=== PATIENT | female | born 2000 | race Caucasian/White ===

== ENCOUNTER 2021-12-11 15:29 | Inpatient (IN) ==
[2021-12-11] MEDS ORDERED: OXYTOCIN 30 UNITS/500 ML BAG IV PRN (15:49)
[2021-12-11 16:31] LABS: Hematocrit (blood only) 35.1 % (34.1-44.9); Hemoglobin 11.6 g/dl (12.0-16.0); Mean Corpuscular Hemoglobin 27.8 pg (25.0-34.0); Mean Platelet Volume 10.2 fL (9.4-12.3); Platelet Count 314 K/uL (130-400); RDW Coefficient of Variation 13.6 % (11.5-14.5); RDW Standard Deviation 42.1 fL (36.4-46.3); Red Blood Count 4.18 M/uL (3.93-5.22); White Blood Count 11.29 K/ul (4.8-10.8)
[2021-12-11 17:23] LABS: Alanine Aminotransferase 11 U/L (7-52); Albumin Globulin Ratio 1.1 (0.9-2); Albumin Level 3.4 gm/dl (3.4-5.0); Alkaline Phosphatase 222 U/L (34-104); Anion Gap 9 (3-11); Aspartate Aminotransferase 17 U/L (13-39); Bilirubin,Total 0.3 mg/dl (0.2-1.0); Blood Urea Nitrogen 7 mg/dl (6-23); Calcium 8.9 mg/dl (8.5-10.1); Carbon Dioxide 21 mmol/L (21-32); Chloride 104 mmol/L (98-107); Creatinine Clr Calc Pharmacy 213.9 ml/min; Est GFR (African American) > 150.0 ml/min; Est GFR (Non-African American) 134.9 ml/min; Globulin 3.2 gm/dl (2.5-4.0); Glucose 78 mg/dl (70-99(Fasting)); Potassium 3.9 mmol/L (3.5-5.1); Sodium 134 mmol/L (136-145); Total Protein 6.6 gm/dl (6.0-8.3)
[2021-12-11 17:33] LABS: Creatinine Urine Random 36.3 mg/dl; Protein Creatinine Ratio Urine 0.2 (0-0.2); Total Protein Urine Random 5.5 mg/dl (0-11.9)
--- NOTE | 2021-12-11 18:11 | Labor Progress Brief Note ---
Date of Service December 11, 2021 Subjective Patient continues to feel well. No VITALE, vision change / floaters, RUQ pain or worsening of edema. Good FM, no LOF or VB, no ctx. Assessment & Plan (1) Gestational hypertension: Plan: Blood pressures all normal since arrival on L&D. Labs reassuring. Discussed with patient and FOB. She had two severe pressures in office, then all normal BP on L&D after arriving, with no current symptoms and all normal labs. There is some difficulty making the diagnosis of gestational hypertension with only two abnormal pressures taken five minutes apart with a manual cuff and never oth erwise reproduced. But the two values she had were rather impressive, and I have no reason to doubt the nurse who measured them. Pamela is 39+ weeks, at which point any hypertensive diagnosis would be a clear indication for delivery, and even an elective IOL would be fine. Her cervix is currently unripe. Pamela was interested in waiting at least until Tuesday to start an induction if possible. We discussed the possibility of having her come to the office for a BP check that day, with PIH precautions over the weekend, and she was agreeable to IOL if her BP was elevated again on Tuesday which would clearly have made a diagnosis of gestational hypertension. During our discussion, however, the next automatic BP cuff measurement was taken and was 141/79. At that point she did meet the diagnosis of gestational hypertension and was encouraged to stay for IOL tonight, which she accepted. Pamela was not expecting any of this when she went to the office for her routine visit today. She hasn't eaten since breakfast, didn't bring her personal belongings, hasn't showered... Since her induction is likely to be a long process, beginning with a coats balloon attempt this evening, we discussed her having a chance to eat and clean herself up before we get started. Her is going to get some food for them, she'll get a shower, we can continue to monitor her fetus and BP, and she will have the nurse notify me when she's ready for me to place the Coats. Admission and Anticipated Discharge Date Admission Date: December 11, 2021 Physical Exam Genitourinary: cl/th/hi FHT Cat 1 [place] quiet. Results & Data ([facility]) Vital Signs (Past 12 Hours) Vital Signs Temp Pulse Resp BP 12/11/21 17:58 88 141/79 H 12/11/21 17:44 78 129/65 12/11/21 17:29 84 128/60 12/11/21 16:54 91 H 132/74 12/11/21 16:38 85 127/65 12/11/21 16:23 88 131/67 12/11/21 16:20 87 136/64 12/11/21 16:00 98.6 F 88 18 137/74 12/11/21 15:58 88 137/74 12/11/21 15:53 93 H 132/76 Coding Level of Care Code None Diagnoses Gestational hypertension O13.9
--- NOTE | 2021-12-11 20:19 | Procedure Note ---
Procedure Note Date of Service December 11, 2021 Note monitoring was used to ensure reassuring status. The patient was verbally consented for placement of a coats for cervical ripening, with discussion of risks, benefits and alternatives. All her questions were answered. Her legs were placed in lithotomy position. A lubricated, gloved hand was used to examine the cervix. The cervix was fingertip dilated, thick, and posterior. A stylet was lubricated and inserted into a coats catheter to give it stiffness, and the coats catheter was then advanced along my fingers until it reached the external cervical os. The coats was then fed forward off of the stylet, which was itself never moved beyond the external os, such that the soft catheter advanced into the uterine cavity outside of the amnion until the balloon was definitely above the internal cervical os. The balloon was then inflated using sterile water to 35cc volume. Gentle traction was used to seat the balloon downward against the internal cervical os. My hand and the stylet were removed from the vagina, and the coats was secured to the patient's leg with a standard coats holding sticker. There was mild bleeding appropriate for placement of cervical balloon, and no leakage of fluid. The heart tones remained reassuring after this process, which the patient tolerated well. Coding CPT Codes Misx Procedure Codes - 66753 Placement of cervical dilator: 08607 Placement of cervical dilator ([id number]) [facility] Procedure Codes (Charges) Misx Procedure Codes 53567 Placement of cervical dilator
[2021-12-11] MEDS: LACTATED RINGER'S 1,000 ML IV PRN (20:26)
[2021-12-11] MEDS ORDERED: ACETAMINOPHEN 325 MG TAB PO ONE (23:14)
[2021-12-11] MEDS ORDERED: ACETAMINOPHEN 325 MG TAB ONE (23:20)
[2021-12-12] MEDS ORDERED: OXYTOCIN 30 UNITS/500 ML BAG IV PRN ×2 (06:44→23:46)
--- NOTE | 2021-12-12 06:44 | Labor Progress Brief Note ---
Date of Service December 12, 2021 Subjective Sleeping comfortably at this time. Assessment & Plan (1) Gestational hypertension: Plan: Gestational hypertension at 39w2d, for medically indicated induction of labor. Has continued to have occasional HTN values, but none severe, most BP normal. No antihypertensives given during this admission. Will add pitocin to coats, and RN will notify MD when patient awake for next exa m / coats check. Admission and Anticipated Discharge Date Admission Date: December 11, 2021 Physical Exam Genitourinary: Coats remains in place. RN has tugged on coats to ensure it's still firmly in place each time patient has been up to void through the night, and reports it is still in / not able to easily be removed at most recent check. FHT Cat 1 Carmi contractions irregular but at times Q3-4min Results & Data ([facility]) Vital Signs (Past 12 Hours) Vital Signs Temp Pulse Resp BP 12/12/21 05:57 67 117/77 12/12/21 04:56 76 106/59 L 12/12/21 04:08 98.4 F 20 12/12/21 03:56 86 130/73 12/12/21 02:56 75 126/59 L 12/12/21 01:58 74 115/57 L 12/12/21 01:13 18 12/12/21 00:58 81 16 95/53 L 12/12/21 00:06 18 12/11/21 23:57 71 100/54 L 12/11/21 23:02 98.2 F 18 12/11/21 22:57 94 H 145/87 H 12/11/21 22:00 96 H 138/76 12/11/21 21:32 105 H 140/75 12/11/21 21:01 98.6 F 16 12/11/21 20:17 111 H 144/77 H 12/11/21 19:18 84 137/64 12/11/21 19:17 98.2 F 18 Laboratory Results Laboratory Results - last 24 hr 12/11/21 12/11/21 12/11/21 16:07 16:07 16:07 WBC 11.29 H RBC 4.18 Hgb 11.6 L Hct 35.1 MCV 84.0 MCH 27.8 MCHC 33.0 RDW Std Deviation 42.1 RDW Coeff of Mahsa 13.6 Plt Count 314 MPV 10.2 Sodium 134 L Potassium 3.9 Chloride 104 Carbon Dioxide 21 Anion Gap 9 BUN 7 Creatinine 0.54 L Est Cr Clr Drug Dosing 213.9 Est GFR ( Amer) > 150.0 Est GFR (Non-Af Amer) 134.9 BUN/Creatinine Ratio 13.0 Glucose 78 Calcium 8.9 Total Bilirubin 0.3 AST 17 ALT 11 Alkaline Phosphatase 222 H Total Protein 6.6 Albumin 3.4 Globulin 3.2 Albumin/Globulin Ratio 1.1 Ur Random Creatinine U Random Total Protein Protein/Creatinin Ratio SARS-CoV-2, RNA, NAAT Blood Type A Positive Antibody Screen NEGATIVE 12/11/21 12/11/21 16:10 16:20 WBC RBC Hgb Hct MCV MCH MCHC RDW Std Deviation RDW Coeff of Mahsa Plt Count MPV Sodium Potassium Chloride Carbon Dioxide Anion Gap BUN Creatinine Est Cr Clr Drug Dosing Est GFR ( Amer) Est GFR (Non-Af Amer) BUN/Creatinine Ratio Glucose Calcium Total Bilirubin AST ALT Alkaline Phosphatase Total Protein Albumin Globulin Albumin/Globulin Ratio Ur Random Creatinine 36.3 U Random Total Protein 5.5 Protein/Creatinin Ratio 0.2 SARS-CoV-2, RNA, NAAT NEGATIVE Blood Type Antibody Screen Coding Level of Care Code None Diagnoses Gestational hypertension O13.9
[2021-12-12] MEDS: LACTATED RINGER'S 1,000 ML IV PRN ×5 (07:32→23:08)
--- NOTE | 2021-12-12 07:50 | Labor Progress Brief Note ---
Date of Service December 12, 2021 Subjective Patient tolerating cramping. Does c/o VITALE, mild and L frontal, that she believes is due to not sleeping well. Notes occasional floaters in vision this morning that are similar to what she's had off and on in recent weeks, "not bad" compared to what she usually has and not always present, only when she looks in certain directions. Assessment & Plan (1) Gestational hypertension: Plan: BP primarily in [id number] range, with some in mild HTN range. No severe pressures since she was in the office yesterday. No hyperreflexia and labs normal. Her VITALE last night responded fully to tylenol, and I'm uncertain she merits magnesium. Will give another dose of tylenol and if any VITALE or floaters persist would likely diagnose with severe features. Admission and Anticipated Discharge Date Admission Date: December 11, 2021 Physical Exam Neurologic: Reflexes normal / 2+ Genitourinary: FHT Cat 1 [place] ?Q4 subtle pattern, difficult to trace 2/2 habitus [place] balloon sitting at labia, removed. Cervical exam poorly tolerated and I'm only able to reach the anterior lip of the cervix, but it is no longer closed. Presumably at least 3cm, thick, and still very posterior. Lymphatic: Edema bilateral LE unchanged from admission Results & Data ([facility]) Vital Signs (Past 12 Hours) Vital Signs Temp Pulse Resp BP 12/12/21 07:02 74 153/74 H 12/12/21 05:57 67 117/77 12/12/21 04:56 76 106/59 L 12/12/21 04:08 98.4 F 20 12/12/21 03:56 86 130/73 12/12/21 02:56 75 126/59 L 12/12/21 01:58 74 115/57 L 12/12/21 01:13 18 12/12/21 00:58 81 16 95/53 L 12/12/21 00:06 18 12/11/21 23:57 71 100/54 L 12/11/21 23:02 98.2 F 18 12/11/21 22:57 94 H 145/87 H 12/11/21 22:00 96 H 138/76 12/11/21 21:32 105 H 140/75 12/11/21 21:01 98.6 F 16 12/11/21 20:17 111 H 144/77 H Coding Level of Care Code None Diagnoses Gestational hypertension O13.9
[2021-12-12] MEDS ORDERED: ACETAMINOPHEN 325 MG TAB ONE (07:51)
--- NOTE | 2021-12-12 09:54 | Labor Progress Brief Note ---
Date of Service December 12, 2021 Subjective Reason For Note: Routine Evaluation Assessment & Plan (1) Gestational hypertension: Plan: AROM clr, mostly normotensive with occasional mild range BPs. Continue Pitocin. Epidural PRN Admission and Anticipated Discharge Date Admission Date: December 11, 2021 Physical Exam Genitourinary: Manual OB Exam: + cervical dilation 3 cm, + cervical effacement 50%, + station high and + amniotic fluid clear OB Exam Monitor Tracing: + external FHT monitor used, + external uterine monitor used, + category I and + normal FHT variability; no early decelerations present, no late decelerations present and no variable decelerations Results & Data ([facility]) Vital Signs (Past 12 Hours) Vital Signs Temp Pulse Resp BP 12/12/21 09:34 63 131/70 12/12/21 09:20 61 128/66 12/12/21 09:04 75 123/62 12/12/21 08:50 62 125/66 12/12/21 08:35 64 103/53 L 12/12/21 08:21 67 106/55 L 12/12/21 07:49 73 142/75 H 12/12/21 07:02 74 153/74 H 12/12/21 05:57 67 117/77 12/12/21 04:56 76 106/59 L 12/12/21 04:08 36.9 C 12/12/21 03:56 86 130/73 12/12/21 02:56 75 126/59 L 12/12/21 01:58 74 115/57 L 12/12/21 01:13 18 12/12/21 00:58 81 16 95/53 L 12/12/21 00:06 18 12/11/21 23:57 71 100/54 L 12/11/21 23:02 36.8 C 18 12/11/21 22:57 94 H 145/87 H 12/11/21 22:00 96 H 138/76 Coding Level of Care Code None Diagnoses Gestational hypertension O13.9
[2021-12-12] MEDS ORDERED: ePHEDrine sulfate 50 MG/ML AMP ONE (11:09)
[2021-12-12] MEDS ORDERED: BUPIVACAINE 0.25% 30 ML VIAL ONE (11:10)
[2021-12-12] MEDS ORDERED: fentaNYL citrate 100 MCG/2 ML VIAL ONE (11:10)
[2021-12-12] MEDS ORDERED: SODIUM CHLORIDE 0.9% INJ 10 ML VIAL ONE (11:10)
[2021-12-12] MEDS ORDERED: LIDOCAINE 2%/EPINEPHRINE 1:200,000 20 ML SDV ONE (11:10)
[2021-12-12] MEDS ORDERED: fentaNYL 2MCG/ML ROPIVACAINE 1.25MG/ML 100 ML BAG EPI ONE (11:11)
--- NOTE | 2021-12-12 11:53 | Anesthesiology Consultation ---
Date of Service December 12, 2021 Assessment & Plan (1) Encounter for pre-operative examination: Chart Review Chart Review: Acceptable Risk for Labor Epidural Consults Requested none ASA ASA2 Proposed Anesthesia Anesthesia Type: Labor Epidural Risk / Benefits Reviewed With: PT / POA / Parent / Guardian, Accepts Plan and Informed Consent Obtained History Height/Weight Height: 5 ft 6 in Weight: 116.573 kg Allergies Allergy/AdvReac Type Severity Reaction Status Date / Time No Known Allergies Allergy Verified 12/11/21 14:42 Medications Home Medications Medication Instructions Recorded Confirmed Last Taken prenat.vits,yanick,tkf-ycbm-qoprg 1 tab PO DAILY 07/15/21 12/11/21 12/10/21 22:00 Active Medications Generic Name Dose Route Start Last Admin Trade Name Freq PRN Reason Stop Dose Admin Lactated Ringer's 1,000 mls @ 125 mls/hr 12/11/21 15:49 12/12/21 11:33 Lr IV 12/13/21 15:48 125 mls/hr .Q8H PRN Infusion L&D Protocol Protocol Oxytocin 30 units in 500 mls @ 11 mls/hr 12/12/21 06:44 12/12/21 10:00 Pitocin IV 12/14/21 06:43 0.66 units/hr .Q24H PRN 11 mls/hr Labor Induction/Augmentation Titration Protocol 0.66 UNITS/HR Exercise / Class Metabolic Activity II 4-5 Yardwork/Stairs/Walk up hill Past Family History Family History Other Adopted Past Anesthesia History No Hx of Anesthesia Complications and No Family Hx of Anesthesia Complications History of PONV No Hx of PONV and No Hx of Motion Sickness Social History Smoking Status: Never smoker Do You Dip or Chew Tobacco: No Hx Alcohol Use: No Hx Substance Use: No substance use type: does not use Physical Exam Vital Signs Last Vital Signs Temp 98.1 F 12/12/21 11:47 Pulse 67 12/12/21 11:50 Resp 20 12/12/21 11:47 BP 137/73 12/12/21 11:50 ENMT Mouth: no dentition abnormality Thyromental Distance: > or= 3.5 Finger Breadths Mallampati Class: II Neck normal visual inspection Respiratory normal respiratory effort Auscultation: lungs clear to auscultation bilaterally Cardiovascular Rate/Rhythm: regular rate and regular rhythm Testing Laboratory Results 12/11/21 16:07 12/11/21 16:07 Blood Type A Positive 12/11/21 16:07 Antibody Screen NEGATIVE 12/11/21 16:07
[2021-12-12] MEDS ORDERED: diphenhydrAMINE 50 MG/ML VIAL IV PRN (12:17)
[2021-12-12] MEDS ORDERED: ePHEDrine sulfate 50 MG/ML AMP IV PRN (12:17)
[2021-12-12] MEDS ORDERED: ONDANSETRON INJ 2 MG/ML 2 ML VIAL IV PRN (12:17)
[2021-12-12] MEDS ORDERED: NALOXONE HCL 0.4 MG/1 ML VIAL/CARP IV PRN (12:17)
[2021-12-12] MEDS ORDERED: NALOXONE HCL 1 MG in SODIUM CHLORIDE 0.9% 1000ML 1,000 ML IV PRN (12:17)
[2021-12-12] MEDS ORDERED: NALBUPHINE HCL INJ 10 MG/ML AMP IV PRN (12:17)
--- NOTE | 2021-12-12 13:12 | Labor Progress Brief Note ---
Date of Service December 12, 2021 Subjective Reason For Note: Requested By RN, Requested By Patient and Inadequate Pain Control Assessment & Plan Plan: Minimal progression. Reporting severe lower back pain not being covered by epidural. Will ask Anesthesia to evaluate. Continue Pitocin. Elevated BPs noted during epidural placement and are currently normotensive. Admission and Anticipated Discharge Date Admission Date: December 11, 2021 Physical Exam Genitourinary: normal external appearance Manual OB Exam: + cervical dilation 4 cm, + cervical effacement 50% and + station high and -2 OB Exam Monitor Tracing: + external FHT monitor used, + external uterine monitor used, + category I, + normal FHT variability and + early decelerations present; no late decelerations present and no variable decelerations Results & Data ([facility]) Vital Signs (Past 12 Hours) Vital Signs Temp Pulse Resp BP Pulse Ox 12/12/21 13:04 80 95 12/12/21 12:59 84 128/60 95 12/12/21 12:54 86 134/65 96 12/12/21 12:49 73 96 12/12/21 12:44 76 97 12/12/21 12:39 37 C 77 20 148/87 H 96 12/12/21 12:34 74 97 12/12/21 12:31 102 H 94 12/12/21 12:29 66 97 12/12/21 12:25 77 20 136/76 12/12/21 12:24 78 96 12/12/21 12:21 90 149/66 H 12/12/21 12:20 76 20 142/66 H 12/12/21 12:19 75 96 12/12/21 12:18 101 H 155/71 H 12/12/21 12:15 90 142/63 H 12/12/21 12:14 96 H 96 12/12/21 12:13 97 H 22 150/65 H 12/12/21 12:11 101 H 176/103 H 12/12/21 12:10 99 H 94 12/12/21 12:09 88 95 12/12/21 12:04 96 H 97 12/12/21 11:59 104 H 97 12/12/21 11:50 67 137/73 12/12/21 11:47 36.7 C 20 12/12/21 10:39 68 136/66 12/12/21 09:34 37.1 C 63 20 131/70 07/09/22 09:20 61 128/66 12/12/21 09:04 75 123/62 12/12/21 08:50 62 125/66 12/12/21 08:35 64 103/53 L 12/12/21 08:21 67 106/55 L 12/12/21 07:49 73 142/75 H 12/12/21 07:02 74 153/74 H 12/12/21 05:57 67 117/77 12/12/21 04:56 76 106/59 L 12/12/21 04:08 36.9 C 20 12/12/21 03:56 86 130/73 12/12/21 02:56 75 126/59 L 12/12/21 01:58 74 115/57 L 12/12/21 01:13 18 Coding Level of Care Code None
--- NOTE | 2021-12-12 13:25 | Communication Note ---
Date of Service: December 12, 2021 Pt stated having increasing labor pains. The epidural was bolused with 4mL of 0.25% bupivacaine and 75mcg of fentanyl. The patient stated having improved lab or pains. VSS throughout.
[2021-12-12] MEDS: fentaNYL 2MCG/ML ROPIVACAINE 1.25MG/ML 100 ML BAG EPI PRN ×2 (18:05→22:59)
--- NOTE | 2021-12-12 18:26 | Labor Progress Brief Note ---
Date of Service December 12, 2021 Subjective Reason For Note: Routine Evaluation Assessment & Plan (1) Gestational hypertension: Plan: Progressing, Normotensive, AROM clr, Continue pitocin (2) Supervision of normal intrauterine in primigravida: Admission and Anticipated Discharge Date Admission Date: December 11, 2021 Physical Exam Genitourinary: Manual OB Exam: + cervical dilation 5 cm, + cervical effacement 70%, + station -2 and + amniotic fluid clear OB Exam Monitor Tracing: + external FHT monitor used, + external uterine monitor used, + category I, + normal FHT variability and + early decelerations present; no late decelerations present and no variable decelerations Results & Data ([facility]) Vital Signs (Past 12 Hours) Vital Signs Temp Pulse Resp BP Pulse Ox 12/12/21 18:14 88 95 12/12/21 18:09 86 96 12/12/21 18:08 90 127/58 L 12/12/21 18:04 82 95 12/12/21 17:59 87 94 12/12/21 17:54 82 130/63 95 12/12/21 17:49 87 96 12/12/21 17:44 92 H 97 12/12/21 17:39 37.3 C 89 20 124/57 L 97 12/12/21 17:34 89 97 12/12/21 17:29 96 H 98 12/12/21 17:24 82 125/60 96 12/12/21 17:19 85 96 12/12/21 17:14 88 97 12/12/21 17:09 81 123/61 95 12/12/21 17:04 80 96 12/12/21 16:59 78 96 12/12/21 16:54 82 97 12/12/21 16:53 81 115/56 L 12/12/21 16:49 77 96 12/12/21 16:44 87 97 12/12/21 16:39 88 99 12/12/21 16:38 82 120/56 L 12/12/21 16:34 78 97 12/12/21 16:29 77 97 12/12/21 16:24 75 122/57 L 97 12/12/21 16:19 92 H 98 12/12/21 16:14 86 98 12/12/21 16:09 82 98 12/12/21 16:08 77 119/58 L 12/12/21 16:04 75 97 12/12/21 15:59 99 H 97 12/12/21 15:54 36.9 C 84 20 138/72 97 12/12/21 15:49 85 97 12/12/21 15:44 101 H 97 12/12/21 15:40 90 138/72 12/12/21 15:39 82 96 12/12/21 15:34 80 97 12/12/21 15:29 81 96 12/12/21 15:24 78 94 12/12/21 15:23 88 132/64 12/12/21 15:19 79 95 12/12/21 15:14 74 95 12/12/21 15:09 68 132/60 95 12/12/21 15:04 75 94 12/12/21 14:59 76 94 12/12/21 14:54 74 18 130/60 95 12/12/21 14:49 67 94 12/12/21 14:44 77 94 12/12/21 14:39 77 135/63 95 12/12/21 14:34 83 96 12/12/21 14:29 73 97 12/12/21 14:24 82 96 12/12/21 14:23 72 130/66 12/12/21 14:19 79 96 12/12/21 14:14 74 96 12/12/21 14:10 78 92 12/12/21 14:09 80 130/63 97 12/12/21 14:04 81 97 12/12/21 14:00 18 12/12/21 13:59 78 97 12/12/21 13:54 62 95 12/12/21 13:53 64 118/56 L 12/12/21 13:52 64 94 12/12/21 13:49 63 95 12/12/21 13:47 65 94 12/12/21 13:44 66 95 12/12/21 13:39 64 120/60 96 12/12/21 13:34 82 96 12/12/21 13:29 74 97 12/12/21 13:24 78 96 12/12/21 13:22 67 147/75 H 12/12/21 13:20 75 146/72 H 12/12/21 13:19 70 95 12/12/21 13:18 60 24 147/68 H 12/12/21 13:16 68 138/73 94 12/12/21 13:14 77 137/77 95 12/12/21 13:11 70 141/77 H 12/12/21 13:09 73 96 12/12/21 13:04 80 95 12/12/21 12:59 84 128/60 95 12/12/21 12:54 86 134/65 96 12/12/21 12:49 73 96 12/12/21 12:44 76 97 12/12/21 12:39 37 C 77 20 148/87 H 96 12/12/21 12:34 74 97 12/12/21 12:31 102 H 94 12/12/21 12:29 66 97 12/12/21 12:25 77 20 136/76 12/12/21 12:24 78 96 12/12/21 12:21 90 149/66 H 12/12/21 12:20 76 20 142/66 H 12/12/21 12:19 75 96 12/12/21 12:18 101 H 155/71 H 12/12/21 12:15 90 142/63 H 12/12/21 12:14 96 H 96 12/12/21 12:13 97 H 22 150/65 H 12/12/21 12:11 101 H 176/103 H 12/12/21 12:10 99 H 94 12/12/21 12:09 88 95 12/12/21 12:04 96 H 97 12/12/21 11:59 104 H 97 12/12/21 11:50 67 137/73 12/12/21 11:47 36.7 C 20 12/12/21 10:39 68 136/66 12/12/21 09:34 37.1 C 63 20 131/70 12/12/21 09:20 61 128/66 12/12/21 09:04 75 123/62 12/12/21 08:50 62 125/66 12/12/21 08:35 64 103/53 L 12/12/21 08:21 67 106/55 L 12/12/21 07:49 73 142/75 H 12/12/21 07:02 74 153/74 H Coding Level of Care Code None Diagnoses Gestational hypertension O13.9 Supervision of normal intrauterine in primigravida Z34.00
--- NOTE | 2021-12-12 19:11 | Labor Progress Brief Note ---
Date of Service December 12, 2021 Subjective Reason For Note: Routine Evaluation Assessment & Plan (1) Gestational hypertension: Plan: Progressing, Normotensive, continue pitocin, Cat 2 tracing with variable decels but with good variability. (2) Supervision of normal intrauterine in primigravida: Admission and Anticipated Discharge Date Admission Date: December 11, 2021 Physical Exam Genitourinary: Manual OB Exam: + cervical dilation (7.5), + cervical effacement 90%, + station 0 and + amniotic fluid clear OB Exam Monitor Tracing: + external FHT monitor used, + external uterine monitor used, + category I, + normal FHT variability, + early decelerations present and + variable decelerations; no late decelerations present Results & Data ([facility]) Vital Signs (Past 12 Hours) Vital Signs Temp Pulse Resp BP Pulse Ox 12/12/21 19:04 97 H 97 12/12/21 18:59 78 98 12/12/21 18:54 79 133/64 97 12/12/21 18:49 77 95 12/12/21 18:44 79 97 12/12/21 18:39 81 95 12/12/21 18:38 78 132/60 12/12/21 18:34 76 95 12/12/21 18:29 80 95 12/12/21 18:24 79 130/58 L 96 12/12/21 18:19 81 97 12/12/21 18:14 88 95 12/12/21 18:09 86 96 12/12/21 18:08 90 127/58 L 12/12/21 18:04 82 95 12/12/21 17:59 87 94 12/12/21 17:54 82 130/63 95 12/12/21 17:49 87 96 12/12/21 17:44 92 H 97 12/12/21 17:39 37.3 C 89 20 124/57 L 97 12/12/21 17:34 89 97 12/12/21 17:29 96 H 98 12/12/21 17:24 82 125/60 96 12/12/21 17:19 85 96 12/12/21 17:14 88 97 12/12/21 17:09 81 123/61 95 12/12/21 17:04 80 96 12/12/21 16:59 78 96 12/12/21 16:54 82 97 12/12/21 16:53 81 115/56 L 12/12/21 16:49 77 96 12/12/21 16:44 87 97 12/12/21 16:39 88 99 12/12/21 16:38 82 120/56 L 12/12/21 16:34 78 97 12/12/21 16:29 77 97 12/12/21 16:24 75 122/57 L 97 12/12/21 16:19 92 H 98 12/12/21 16:14 86 98 12/12/21 16:09 82 98 12/12/21 16:08 77 119/58 L 12/12/21 16:04 75 97 12/12/21 15:59 99 H 97 12/12/21 15:54 36.9 C 84 20 138/72 97 12/12/21 15:49 85 97 12/12/21 15:44 101 H 97 12/12/21 15:40 90 138/72 12/12/21 15:39 82 96 12/12/21 15:34 80 97 12/12/21 15:29 81 96 12/12/21 15:24 78 94 12/12/21 15:23 88 132/64 12/12/21 15:19 79 95 12/12/21 15:14 74 95 12/12/21 15:09 68 132/60 95 12/12/21 15:04 75 94 12/12/21 14:59 76 94 12/12/21 14:54 74 18 130/60 95 12/12/21 14:49 67 94 12/12/21 14:44 77 94 12/12/21 14:39 77 135/63 95 12/12/21 14:34 83 96 12/12/21 14:29 73 97 12/12/21 14:24 82 96 12/12/21 14:23 72 130/66 12/12/21 14:19 79 96 12/12/21 14:14 74 96 12/12/21 14:10 78 92 12/12/21 14:09 80 130/63 97 12/12/21 14:04 81 97 12/12/21 14:00 18 12/12/21 13:59 78 97 12/12/21 13:54 62 95 12/12/21 13:53 64 118/56 L 12/12/21 13:52 64 94 12/12/21 13:49 63 95 12/12/21 13:47 65 94 12/12/21 13:44 66 95 12/12/21 13:39 64 120/60 96 12/12/21 13:34 82 96 12/12/21 13:29 74 97 12/12/21 13:24 78 96 12/12/21 13:22 67 147/75 H 12/12/21 13:20 75 146/72 H 12/12/21 13:19 70 95 12/12/21 13:18 60 24 147/68 H 12/12/21 13:16 68 138/73 94 12/12/21 13:14 77 137/77 95 12/12/21 13:11 70 141/77 H 12/12/21 13:09 73 96 12/12/21 13:04 80 95 12/12/21 12:59 84 128/60 95 12/12/21 12:54 86 134/65 96 12/12/21 12:49 73 96 12/12/21 12:44 76 97 12/12/21 12:39 37 C 77 20 148/87 H 96 12/12/21 12:34 74 97 12/12/21 12:31 102 H 94 12/12/21 12:29 66 97 12/12/21 12:25 77 20 136/76 12/12/21 12:24 78 96 12/12/21 12:21 90 149/66 H 12/12/21 12:20 76 20 142/66 H 12/12/21 12:19 75 96 12/12/21 12:18 101 H 155/71 H 12/12/21 12:15 90 142/63 H 12/12/21 12:14 96 H 96 12/12/21 12:13 97 H 22 150/65 H 12/12/21 12:11 101 H 176/103 H 12/12/21 12:10 99 H 94 12/12/21 12:09 88 95 12/12/21 12:04 96 H 97 12/12/21 11:59 104 H 97 12/12/21 11:50 67 137/73 12/12/21 11:47 36.7 C 20 12/12/21 10:39 68 136/66 12/12/21 09:34 37.1 C 63 20 131/70 12/12/21 09:20 61 128/66 12/12/21 09:04 75 123/62 12/12/21 08:50 62 125/66 12/12/21 08:35 64 103/53 L 12/12/21 08:21 67 106/55 L 12/12/21 07:49 73 142/75 H Coding Level of Care Code None Diagnoses Gestational hypertension O13.9 Supervision of normal intrauterine in primigravida Z34.00
[2021-12-12] MEDS ORDERED: miSOPROStoL 200 MCG TAB ONE (23:32)
[2021-12-12] MEDS ORDERED: DIPHTHERIA/TETANUS/PERTUSSIS 0.5 ML SYR/VIAL IM ONE (23:46)
[2021-12-12] MEDS ORDERED: HYDROCORTISONE ACETATE 25 MG SUPP PR PRN (23:46)
[2021-12-12] MEDS ORDERED: ACETAMINOPHEN 325 MG TAB PO PRN (23:46)
[2021-12-12] MEDS ORDERED: BENZOCAINE 20% AER SPR 82.5 GM CAN EXT PRN (23:46)
[2021-12-12] MEDS ORDERED: bisacodyL 10 MG SUPP PR PRN (23:46)
[2021-12-12] MEDS ORDERED: miSOPROStoL 200 MCG TAB PR ONE (23:48)
[2021-12-12] MEDS: ACETAMINOPHEN 325 MG TAB PO PRN (23:57)
[2021-12-13] MEDS: IBUPROFEN 600 MG TAB PO PRN ×2 (01:50→21:44)
[2021-12-13 06:39] LABS: Hematocrit (blood only) 32.1 % (34.1-44.9); Hemoglobin 10.7 g/dl (12.0-16.0); Mean Corpuscular Hemoglobin 28.2 pg (25.0-34.0); Mean Corpuscular Hgb Conc 33.3 g/dL (32.0-36.0); Mean Corpuscular Volume 84.7 fL (80.0-100.0); Mean Platelet Volume 10.3 fL (9.4-12.3); Platelet Count 248 K/uL (130-400); RDW Coefficient of Variation 13.9 % (11.5-14.5); RDW Standard Deviation 43.1 fL (36.4-46.3); Red Blood Count 3.79 M/uL (3.93-5.22); White Blood Count 22.82 K/ul (4.8-10.8)
--- NOTE | 2021-12-13 07:57 | Obstetrical Progress Note ---
Date of Service December 13, 2021 Assessment & Plan (1) Encounter for care and examination after delivery: Day 1 s/p . Doing well. Occasional mild range BP. Routine care Subjective Ambulation: ambulating normally Voiding: no voiding problems Passing Gas:: Yes Diet Tolerance:: regular diet Lochia:: Moderate Feeding Type:: breast feeding Physical Exam Constitutional WD/WN, vitals as above Respiratory normal respiratory effort; no respiratory distress and no labored breathing Gastrointestinal (Abdomen) Inspection/Auscultation: abdomen normal to inspection; abdomen not distended Percussion/Palpation: abdomen soft; abdomen nontender, no guarding and abdomen not rigid Genitourinary OB Exam Abdomen: + fundal height Fundus: + firm and + relation to umbilicus (Below); not tender or not boggy Results & Data ([facility]) Vital Signs (Past 12 Hours) Vital Signs Temp Pulse Pulse Resp BP BP Pulse Ox 12/13/21 02:40 37.2 C 98 H 18 138/83 12/13/21 01:47 37.4 C 80 18 147/70 H 12/13/21 01:32 78 140/66 12/13/21 01:17 83 18 135/63 12/13/21 01:02 82 141/65 H 12/13/21 00:47 37.6 C H 85 18 126/55 L 12/13/21 00:32 78 16 131/64 12/13/21 00:17 68 20 132/67 12/13/21 00:02 86 16 128/76 12/12/21 23:47 99 H 18 120/68 12/12/21 23:45 89 98 12/12/21 23:40 103 H 98 12/12/21 23:35 98 H 98 12/12/21 23:30 117 H 97 12/12/21 23:25 164 H 95 12/12/21 23:24 135 H 91 12/12/21 23:20 123 H 98 12/12/21 23:15 134 H 98 12/12/21 23:10 119 H 98 12/12/21 23:09 110 H 130/58 L 81 L 12/12/21 23:04 97 H 99 12/12/21 23:03 95 H 88 L 12/12/21 22:59 91 H 95 12/12/21 22:56 119 H 89 L 12/12/21 22:54 90 98 12/12/21 22:49 100 H 98 12/12/21 22:44 73 98 12/12/21 22:39 86 98 12/12/21 22:38 81 134/60 12/12/21 22:34 69 98 12/12/21 22:29 84 99 12/12/21 22:24 76 99 12/12/21 22:23 77 132/62 12/12/21 22:19 90 98 12/12/21 22:14 79 99 12/12/21 22:09 74 131/64 99 12/12/21 22:04 77 99 12/12/21 21:59 75 99 12/12/21 21:54 75 100 12/12/21 21:53 83 133/72 12/12/21 21:49 87 100 12/12/21 21:44 84 99 12/12/21 21:39 95 H 133/61 100 12/12/21 21:34 102 H 100 12/12/21 21:29 102 H 99 12/12/21 21:24 82 99 12/12/21 21:23 85 131/61 12/12/21 21:19 85 98 12/12/21 21:14 83 98 12/12/21 21:09 80 126/59 L 98 12/12/21 21:04 80 97 12/12/21 21:01 37.2 C 16 12/12/21 20:59 90 97 12/12/21 20:54 77 131/62 97 12/12/21 20:49 76 98 12/12/21 20:44 78 97 12/12/21 20:39 81 99 12/12/21 20:38 81 126/62 12/12/21 20:34 81 99 12/12/21 20:33 18 12/12/21 20:29 88 99 12/12/21 20:24 87 135/62 98 12/12/21 20:19 78 98 12/12/21 20:14 85 98 12/12/21 20:09 84 100 12/12/21 20:08 82 132/61 12/12/21 20:04 76 99 12/12/21 19:59 89 98
[2021-12-13] MEDS: DOCUSATE SODIUM 100 MG CAP PO SCH ×2 (09:07→20:10)
[2021-12-13] MEDS: FERROUS SULFATE 325 MG TAB PO SCH (09:07)
[2021-12-13] MEDS: PRENATAL VITAMIN 1 TAB PO SCH (09:07)
[2021-12-13] MEDS: ACETAMINOPHEN 325 MG TAB PO PRN ×2 (09:08→16:34)
--- NOTE | 2021-12-13 09:09 | Anesthesia Procedure Note ---
Date of Service December 13, 2021 Anesthesia Post Epidural Note Vital Signs Vital Signs: Temp Pulse Resp BP Pulse Ox 99.0 F 98 H 18 138/83 98 12/13/21 02:40 12/13/21 02:40 12/13/21 02:40 12/13/21 02:40 12/12/21 23:45 Pain Intensity Lower Back: Pain Intensity: 5 Episiotomy/Laceration: Pain Intensity: 6 Notes Mental Status: alert / awake / arousable and participated in evaluation Nausea / Vomiting: adequately controlled Pain: adequately controlled Airway Patency, RR, SpO2: stable & adequate BP & HR: stable & adequate Hydration State: stable & adequate Neuraxial Anesthesia: was administered and sensory block is resolving Anesthetic Complications: no major complications apparent and Pt Satisfied with anesthetic care Epidural: Removed without complications and With tip intact
[2021-12-13] MEDS ORDERED: bisacodyL 5 MG TABEC PO SCH (20:00)
[2021-12-14] MEDS: IBUPROFEN 600 MG TAB PO PRN ×2 (01:51→06:12)
[2021-12-14 06:22] LABS: Hematocrit (blood only) 29.3 % (34.1-44.9); Hemoglobin 9.5 g/dl (12.0-16.0)
--- NOTE | 2021-12-14 07:12 | Obstetrical Progress Note ---
Date of Service December 14, 2021 Assessment & Plan (1) Encounter for care and examination after delivery: Day 2 s/p . Doing well. Normotensive past 24hrs. Denies PIH symptoms. Stable for discharge Subjective Ambulation: ambulating normally Voiding: no voiding problems Passing Gas:: Yes Diet Tolerance:: regular diet Lochia:: Moderate Feeding Type:: breast feeding Physical Exam Constitutional WD/WN, vitals as above Respiratory normal respiratory effort; no respiratory distress and no labored breathing Gastrointestinal (Abdomen) Inspection/Auscultation: abdomen normal to inspection; abdomen not distended Percussion/Palpation: abdomen soft; abdomen nontender, no guarding and abdomen not rigid Genitourinary OB Exam Abdomen: + fundal height Fundus: + firm and + relation to umbilicus (Below); not tender or not boggy Results & Data ([facility]) Vital Signs (Past 12 Hours) Vital Signs Temp Pulse Resp BP 12/13/21 23:35 36.8 C 78 18 131/76 12/13/21 20:08 36.9 C 82 18 124/80
[2021-12-14] MEDS: DOCUSATE SODIUM 100 MG CAP PO SCH (07:51)
[2021-12-14] MEDS: PRENATAL VITAMIN 1 TAB PO SCH (07:51)
[2021-12-14] MEDS: FERROUS SULFATE 325 MG TAB PO SCH (07:51)
--- NOTE | 2021-12-17 14:11 | Delivery Summary ---
DATE OF SERVICE: 12/12/2021 PROCEDURE: Normal spontaneous vaginal delivery with first-degree perineal laceration repair and righ t labial laceration repair. SURGEON: Jean Cha MD PREOPERATIVE DIAGNOSES: 1. Single intrauterine at 39 weeks gestational age. 2. Gestational hypertension. POSTOPERATIVE DIAGNOSES: 1. Single intrauterine at 39 weeks gestational age. 2. Gestational hypertension. 3. Status post delivery. ESTIMATED BLOOD LOSS: 300 mL. DRAINS: None. FLUIDS: Continuous lactated Ringer. URINE OUTPUT: Not measured. COMPLICATIONS: None. FINDINGS: Viable female with Apgars of 8 and 9 at one and five minutes respectively and weig ht of 7 pounds 12 ounces. DESCRIPTION OF PROCEDURE: The patient progressed to 10 cm dilated, 100% effaced, positive 2 station, pushed over intact perineum with epidural anesthesia and delivered a viable female with weigh t and Apgars as noted above. Head of delivered in JORGE position, restituted to left transvers e. No nuchal cord was noted. Body and shoulders quickly followed. was noted to be vigorous soon after delivery and a 1-minute delayed cord clamping was initiated. Cord was then double clampe d and cut. was taken over to the waiting nursery staff for evaluation. Cord blood was obtai padmini. Attention was then turned to delivery of the placenta, which was delivered intact, 3-vessel cor d, and gentle cord traction. On inspection of the perineum, vagina, cervix, there was noted to be a small first-degree perineal laceration as well as a right labial laceration. These were repaired wit h 3-0 Vicryl. Needle, sponge, and instrument counts were correct at the completion of the case. Bot mother and were stable in the immediate post-delivery period. Job ID: [id number]
== END 2021-12-14 11:20 | disposition home or self-care (01) | DRG 807 ==
LOC: OPB 15:29 → 4S1 15:31 → 4E2 12-13 02:31